=== PATIENT | male | born 1975 | race Caucasian/White ===

== ENCOUNTER → 2017-06-24 | Outpatient (REF) | payer BC ==
[2017-06-28 00:06] LABS: Lyme Disease IgG Ab 18 kDa Ban Absent (.); Lyme Disease IgG Ab 23 kDa Ban Present (.); Lyme Disease IgG Ab 28 kDa Ban Absent (.); Lyme Disease IgG Ab 30 kDa Ban Absent (.); Lyme Disease IgG Ab 39 kDa Ban Absent (.); Lyme Disease IgG Ab 41 kDa Ban Absent (.); Lyme Disease IgG Ab 45 kDa Ban Absent (.); Lyme Disease IgG Ab 58 kDa Ban Absent (.); Lyme Disease IgG Ab 66 kDa Ban Absent (.); Lyme Disease IgG Ab 93 kDa Ban Absent (.); Lyme Disease IgG West Blot Int Negative (.); Lyme Disease IgG/IgM Antibodie 1.24 ISR (0.00-0.90); Lyme Disease IgM Ab 23 kDa Ban Present (.); Lyme Disease IgM Ab 39 kDa Ban Absent (.); Lyme Disease IgM Ab 41 kDa Ban Absent (.); Lyme Disease IgM Ab Quantitati 4.43 index (0.00-0.79); Lyme Disease IgM West Blot Int Negative (.)
== END ==
LOC: M LAB REF 22:10
PROVIDERS: ATTEND Physician Assistant
DX: R21 Rash and other nonspecific skin eruption (principal)

== ENCOUNTER → 2018-05-21 | Outpatient (REF) | payer BC | LOC: M LAB REF 19:23 | DX: L02.212 Cutaneous abscess of back [any part, except buttock and flank] (principal) ==

== ENCOUNTER → 2019-03-04 | Outpatient (REF) ==
--- NOTE | 2019-03-04 13:40 | PFTRPT ---
Height: 69.00 Inches Weight: 265.00 Lbs BSA: 2.33 Diagnosis: [employer] DATE OF PROCEDURE: 03/04/2019 ORDERED BY: HERBERT Tellez Spirometry: Study of excellent technical quality. Forced vital capacity normal. FEV1 in proportion. Obstructive index is, therefore, normal. Flow Volume Loop: Expiratory limb of the flow volume loop is normal. Lung Volumes: Total lung capacity normal. Residual volume in proportion. Diffusing Capacity: Diffusing capacity borderline but is appropriate for alveolar volume. Hemoglobin: No hemoglobin available for correction. Airway Mechanics: Airway resistance and conductance are normal. IMPRESSION: Probably normal study. MTDD
== END ==
LOC: EDSTATUS 07:00 → M CARPUL 12:07
PROVIDERS: ATTEND Nurse Practitioner Adult Health
DX: Z00.00 Encounter for general adult medical examination without abnormal findings (principal)

== ENCOUNTER 2019-08-27 12:06 | Emergency (ER) | payer OTHER, BC ==
[~2019-08-27] VITALS: Ht 180.3 cm; Wt 131.6 kg
[2019-08-27] MEDS ORDERED: LISI10TA4 (12:10)
[2019-08-27] MEDS ORDERED: ATOR1TAB21 (12:10)
[2019-08-27] MEDS ORDERED: FLUORESCEIN OPHTH 1 MG STRIP OD ONE (12:45)
[2019-08-27] MEDS ORDERED: TETRACAINE 0.5% OPHTH SOLN 4ML OD ONE (12:45)
[2019-08-27 13:51] VITALS: BP 133/85
== END 2019-08-27 13:51 | disposition home or self-care (01) ==
LOC: M ED 12:06
DX: H57.9 Unspecified disorder of eye and adnexa (principal); I10 Essential (primary) hypertension; Z79.899 Other long term (current) drug therapy

== ENCOUNTER → 2020-12-28 | Outpatient (REF) ==
[~2020-12-28] MED LIST: ATOR1TAB21; LISI10TA22
--- NOTE | 2020-12-28 08:29 | PFTRPT ---
Height: 69.00 Inches Weight: 163.00 Lbs BSA: 1.89 Diagnosis: [employer] DATE: 12/28/2020 ORDERD BY: Elena Valerio Pre and post bronchodilator studies have excellent technical quality. Forced vital capacity is normal.. FEV1 is in proportion. Obstructive index is therefore normal. Expiratory limit of the flow-volume loop is normal. Total lung capacity is normal. Residual volume is in proportion. Diffusing capacity is normal. No hemoglobin available for correction. Airway resistance and conductance are normal. IMPRESSION: Normal study. MTDD
== END ==
LOC: M CARPUL 07:52 → EDSTATUS 08:00
DX: Z11.59 Encounter for screening for other viral diseases (principal)

== ENCOUNTER → 2021-08-09 | Outpatient (REF) ==
--- NOTE | 2021-08-09 11:17 | PFTRPT ---
Height: 69.00 Inches Weight: 224.00 Lbs BSA: 2.17 Diagnosis: [employer] DATE: 08/09/2021 ORDERING PHYSICIAN: Alida Gagnon NP Studies have excellent technical quality. Forced vital capacity is normal. FEV1 is in proportion. Obstructive index is therefore normal. Expiratory limit of the flow-volume loop is normal. Total lung capacity is normal. Residual volume is in proportion. Diffusing capacity is normal. No hemoglobin available for correction. Airway resistance and conductance are normal. IMPRESSION: Normal study. MTDD
--- NOTE | 2021-08-09 11:21 | REP ---
INDICATION: [employer] PT HAS PFT FIRST COMPARISON: 12/08/2015 TECHNIQUE: PA and lateral. FINDINGS: The mediastinum and cardiac silhouette are normal. The lung pereira are clear and without acute consolidation, effusion, or pneumothorax. The skeletal structures are intact and normal. IMPRESSION: No acute cardiopulmonary process. <Electronically signed by Juan Rubi > 08/09/21 1119
== END ==
LOC: M CARPUL 10:50 → EDSTATUS 15:00
PROVIDERS: ATTEND Nurse Practitioner Adult Health
DX: Z11.52 Encounter for screening for COVID-19 (principal)

== ENCOUNTER → 2021-08-17 | Outpatient (REF) ==
[2021-08-17 12:37] LABS: RSV AMPLIFICATION NEGATIVE (NEGATIVE)
== END ==
LOC: M EMP 11:46
PROVIDERS: ATTEND Family Medicine
DX: Z11.52 Encounter for screening for COVID-19 (principal)

== ENCOUNTER → 2022-09-19 | Outpatient (REF) | LOC: M CARPUL 08:38 | PROVIDERS: ATTEND Nurse Practitioner Adult Health | DX: Z00.00 Encounter for general adult medical examination without abnormal findings (principal) ==

== ENCOUNTER 2023-08-16 09:51 | Emergency (ER) | payer OTHER, BC ==
[~2023-08-16] VITALS: Ht 180.3 cm; Wt 129.6 kg
[2023-08-16 09:52] VITALS: BP 129/90; TEMP 98.3; O2SAT 94
[2023-08-16] MEDS ORDERED: OLME20TA2 (10:34)
[2023-08-16] MEDS ORDERED: PROPARACAINE 0.5% OPHTH SOL 15ML OS ONE (11:10)
[2023-08-16] MEDS ORDERED: FLUORESCEIN OPHTH 1MG STRIP OS ONE (11:10)
[2023-08-16] MEDS ORDERED: CIPROFLOXACIN 0.3% OPHTH SOLN 2.5ML OD ONE (11:55)
[2023-08-16] MEDS ORDERED: CIPR0.3S37 OD (11:56)
== END 2023-08-16 12:21 | disposition home or self-care (01) ==
LOC: M ED 09:51
DX: T15.11XA Foreign body in conjunctival sac, right eye, initial encounter (principal); X58.XXXA Exposure to other specified factors, initial encounter; Y93.89 Activity, other specified; Y99.0 Civilian activity done for income or pay; I10 Essential (primary) hypertension

== ENCOUNTER → 2023-12-17 | Outpatient (REF) ==
[~2023-12-17] MED LIST changes: +CIPR0.3S37 OD; +OLME20TA50
== END ==
LOC: M EMP 11:56
PROVIDERS: ATTEND Family Medicine
DX: Z11.52 Encounter for screening for COVID-19 (principal)

== ENCOUNTER → 2024-03-11 | Outpatient (REF) | LOC: M CARPUL 07:12 | PROVIDERS: ATTEND Nurse Practitioner Adult Health | DX: Z00.00 Encounter for general adult medical examination without abnormal findings (principal) ==

== ENCOUNTER 2024-06-03 10:08 | Day surgery (SDC) | payer BC ==
[~2024-06-03] VITALS: Ht 177.8 cm; Wt 125.4 kg
[~2024-06-03 10:08] MED LIST changes: +OLME20TA50 PO
[2024-06-03] MEDS ORDERED: LIDOCAINE 2% 100MG/5ML SDV (FOR ANES.) As Ordered ONE (11:54)
[2024-06-03] MEDS ORDERED: propofoL 200 MG/20 ML VIAL As Ordered ONE (11:54)
[2024-06-03 12:12] VITALS: TEMP 97
[2024-06-03 12:30] VITALS: BP 145/81; O2SAT 95
== END 2024-06-03 12:42 | disposition home or self-care (01) ==
LOC: M OPP 10:08
PROVIDERS: ATTEND Surgery
DX: Z12.11 Encounter for screening for malignant neoplasm of colon (principal); Z80.0 Family history of malignant neoplasm of digestive organs; K64.0 First degree hemorrhoids; K29.50 Unspecified chronic gastritis without bleeding; R14.0 Abdominal distension (gaseous); R10.13 Epigastric pain; Z79.899 Other long term (current) drug therapy

== ENCOUNTER → 2025-08-25 | Outpatient (CLI) | payer BC | LOC: M RAD 12:49 | PROVIDERS: ATTEND Physician Assistant Medical | DX: M25.561 Pain in right knee (principal) ==

== ENCOUNTER → 2025-09-15 | Outpatient (REF) | LOC: M CARPUL 06:53 | PROVIDERS: ATTEND Family Medicine | DX: Z01.89 Encounter for other specified special examinations (principal) ==